=== PATIENT | female | born 1945 | race Caucasian/White ===

== ENCOUNTER 2018-03-06 17:44 | Inpatient (IN) | payer MEDICARE, OTHER ==
[2018-03-06] MEDS ORDERED: Sodium Chloride 0.9% 500 ML IV ONE (19:04)
[2018-03-06] MEDS ORDERED: Iohexol 240 (50 ml) PO STA (19:04)
[2018-03-06] MEDS ORDERED: Sodium Chloride 0.9% 1,000 ML ONE (19:34)
[2018-03-06] MEDS ORDERED: Iohexol 240 (50 ml) ONE (19:35)
[2018-03-06 19:41] LABS: BASO # 0.1 K/uL (0.0-0.2); BASO % 0.4 % (0.0-2.0); EOS # 0.2 K/uL (0.0-0.7); HEMOGLOBIN 12.6 g/dL (11.0-16.0); LYMPH # 3.1 K/uL (1.0-4.3); LYMPH % 25.5 % (20.0-40.0); MEAN CELL VOLUME 88.7 fL (81.0-99.0); MEAN CORPUSCULAR HEMOGLOBIN 29.9 pg (27.0-31.0); MEAN CORPUSCULAR HGB CONC 33.7 g/dL (33.0-37.0); MEAN PLATELET VOLUME 8.6 fL (7.2-11.7); MONO # 0.9 K/uL (0.0-0.8); MONO % 7.2 % (0.0-10.0); NEUT # 7.9 K/uL (1.8-7.0); NEUT % 64.9 % (50.0-75.0); NRBC % 0.1 % (0.0-2.0); RBC 4.22 Mil/uL (3.80-5.20); RED CELL DISTRIBUTION WIDTH 14.3 % (11.5-14.5); WHITE BLOOD COUNT 12.2 K/uL (4.8-10.8)
[2018-03-06 19:45] LABS: INR 1.1; PROTHROMBIN TIME 12.5 SECONDS (9.7-12.2)
[2018-03-06 19:48] LABS: ALBUMIN 4.2 g/dL (3.5-5.0); ALT/SGPT 31 U/L (9-52); AST/SGOT 35 U/L (14-36); BLOOD UREA NITROGEN 24 mg/dL (7-17); CALCIUM 9.4 mg/dl (8.6-10.4); GFR AFRICAN-AMERICAN > 60; GFR NON-AFRICAN AMERICAN > 60; LIPASE 178 U/L (23-300)
[2018-03-06 20:02] LABS: SQUAMOUS EPITHIAL 4 /hpf (0-5); URINE BILIRUBIN NEGATIVE (NEGATIVE); URINE BLOOD 1+ (NEGATIVE); URINE CLARITY Hazy (Clear); URINE COLOR Yellow (YELLOW); URINE GLUCOSE (UA) NORMAL (Normal); URINE HYALINE CAST 0-2 /lpf (0-2); URINE LEUKOCYTE ESTERASE NEG Leu/uL (Negative); URINE PROTEIN NEGATIVE (NEGATIVE); URINE UROBILINOGEN NORMAL mg/dL (0.2-1.0)
[2018-03-06] MEDS ORDERED: Iohexol 300 100 ML IJ ONE (20:27)
--- NOTE | 2018-03-06 21:44 | CT ---
EXAM: CT Abdomen and Pelvis With Intravenous Contrast EXAM DATE/TIME: Exam ordered 03/06/2018 7:53 PM CLINICAL HISTORY: 72 years old, female; Pain and signs and symptoms; Nausea and vomiting; Abdominal pain; Localized; Left; Additional info: Left abd pain. Constipation. N/v. TECHNIQUE: Axial computed tomography images of the abdomen and pelvis with intravenous contrast. All CT scans at this facility use one or more dose reduction techniques, viz.: automated exposure control; ma/kV adjustment per patient size (including targeted exams where dose is matched to indication; i.e. head); or iterative reconstruction technique. Coronal and sagittal reformatted images were created and reviewed. CONTRAST: 100 mL of omnipaque 300 administered intravenously. COMPARISON: No relevant prior studies available. FINDINGS: Lung bases: Discoid atelectasis or scar is seen at the left lung base. Mediastinum: There is a small to moderate size hiatal hernia. ABDOMEN: Liver: The is a rim-like calcification noted in the right upper quadrant inferior to the liver anteriorly. The appearance suggests a lymph node or a small area of chronic fat necrosis. Gallbladder and bile ducts: Surgical clips are noted in the gallbladder fossa. Common bile duct measures 8 mm. No calcified stones. Pancreas: Unremarkable. No mass. No ductal dilation. Spleen: Unremarkable. No splenomegaly. Adrenals: Unremarkable. No mass. Kidneys and ureters: Unremarkable. No solid mass. No hydronephrosis. Stomach and bowel: There is inflammatory change noted around a segment of the descending colon. There is generalized colonic diverticulosis. No obstruction. No mucosal thickening. Appendix: No findings to suggest acute appendicitis. PELVIS: Bladder: Unremarkable. No mass. Reproductive: Unremarkable as visualized. ABDOMEN and PELVIS: Intraperitoneal space: Unremarkable. No free air. No significant fluid collection. Bones/joints: No acute fracture. No dislocation. Soft tissues: There is diastases of the rectus abdominous muscles. There is a left para midline abdominal hernia medial to the left rectus muscle which contains fat. Vasculature: Unremarkable. No abdominal aortic aneurysm. Lymph nodes: Unremarkable. No enlarged lymph nodes. IMPRESSION: 1. Diverticulitis involving a segment of descending colon. No abscess. No perforation. 2. Generalized colonic diverticulosis. 3. Small to moderate size sliding hiatal hernia. 4. 2 hernias in the anterior abdomen. One is incisional and has a broad neck. A second occurs along the medial aspect of the left rectus muscle and contains fat. No findings to suggest strangulation.
[2018-03-06] MEDS ORDERED: metroNIDAZOLE IV 500 mg/100 ml 500 MG/100 ML BAG IVPB STA (21:56)
[2018-03-06] MEDS ORDERED: Ciprofloxacin 400mg/200ml D5W 400 MG/200 ML BAG IVPB STA (21:56)
[2018-03-06] MEDS ORDERED: Insulin Detemir 100 units/ml Vial (Levemir) SC SCH (22:00)
[2018-03-06] MEDS ORDERED: Sodium Chloride 0.9% 1,000 ML IV SCH (22:00)
--- NOTE | 2018-03-06 22:11 | C.PDOC ---
Time Seen by Provider: 03/06/18 18:46 Chief Complaint (Nursing): Abdominal Pain History Per: Patient Onset/Duration Of Symptoms: Days (5) Current Symptoms Are (Timing): Worse Severity: Moderate Location Of Pain/Discomfort: LUQ, LLQ Quality Of Discomfort: "Pain" Associated Symptoms: Nausea, Vomiting, Constipation Alleviating Factors: None Last Bowel Movement: Days Ago (3) Additional History Per: Prior Records Past Medical History Reviewed: Historical Data, Nursing Documentation, Vital Signs Vital Signs: Last Vital Signs Temp 98.4 F 03/06/18 21:13 Pulse 70 03/06/18 21:13 Resp 18 03/06/18 21:13 BP 133/56 L 03/06/18 21:13 Pulse Ox 97 03/06/18 21:13 - Medical History PMH: Diabetes, HTN Surgical History: Cholecystectomy, Hernia Repair Family History: States: Unknown Family Hx - Social History Hx Alcohol Use: No Hx Substance Use: No - Immunization History Hx Tetanus Toxoid Vaccination: No Hx Influenza Vaccination: Yes Hx Pneumococcal Vaccination: Yes Review Of Systems Except As Marked, All Systems Reviewed And Found Negative. Constitutional: Negative for: Weakness Cardiovascular: Negative for: Chest Pain Respiratory: Negative for: Shortness of Breath Gastrointestinal: Positive for: Nausea, Vomiting, Abdominal Pain, Constipation. Negative for: Diarrhea Genitourinary: Negative for: Dysuria Musculoskeletal: Positive for: Back Pain. Negative for: Neck Pain Skin: Negative for: Rash Neurological: Negative for: Weakness, Numbness Physical Exam - Physical Exam Appears: Non-toxic, No Acute Distress Skin: Normal Color, Warm, Dry, No Rash Head: Atraumatic, Normacephalic Eye(s): bilateral: PERRL, EOMI Neck: Normal ROM, Supple Cardiovascular: Rhythm Regular Respiratory: Normal Breath Sounds, No Accessory Muscle Use Gastrointestinal/Abdominal: Tenderness (left sided), Distention Extremity: Normal ROM Neurological/Psych: Oriented x3, Normal Motor, Normal Sensation ED Course And Treatment - Laboratory Results Result Diagrams: 03/06/18 19:29 03/06/18 19:29 Interpretation Of Abnormal: Mild leukocytosis O2 Sat by Pulse Oximetry: 97 Pulse Ox Interpretation: Normal - CT Scan/US CT abd/pelv Other Rad Studies (CT/US): Read By Radiologist, Radiology Report Reviewed CT/US Interpretation: IMPRESSION: 1. Diverticulitis involving a segment of descending colon. No abscess. No. perforation. . 2. Generalized colonic diverticulosis. . 3. Small to moderate size sliding hiatal hernia. . 4. 2 hernias in the anterior abdomen. One is incisional and has a broad neck. A. second occurs along the medial aspect of the left rectus muscle and contains. fat. No findings to suggest strangulation. Progress - Interventions Interventions:: Observation, Intravenous fluid - Medications Administered Intravenous: Antiemetic - Data Reviewed Data Reviewed: Lab, Diagnostic imaging, Old records - Patient Status Patient status: Unchanged - Continuity of Care Discussed patient case with:: Patient, Family-HIPPA compliant, ED Nurse, PMD - Patient Plan Patient Plan: Admission Disposition Discussed With Dr.: Samuel Lazo Jr. Comment: He wants pt to be admitted to the hospital on his service. Pt was also signed out to the [facility]. Counseled Patient/Family Regarding: Studies Performed, Diagnosis - Disposition Disposition: HOSPITALIZED Disposition Time: 22:12 Condition: FAIR - Clinical Impression Clinical Impression: Acute diverticulitis
--- NOTE | 2018-03-06 22:25 | CP.PCM.HP ---
History of Present Illness - History of Present Illness History of Present Illness: CC: abdominal pain and constipation PMD: Full Code This patient is a 72yo F w/ a PMhx of HTN, ID-DM, hypothyroidism, seasonal allergies, who is presenting to the ED after abdominal pain and distention for 4d; she states she has tactile fevers at home, had 3 episodes of vomiting 3 days ago. She also states the last time she had a full BM was 3 days ago and typically goes every day, but has since been able to keep all food down but is eating much less than normal. She denies any sick contacts, new foods, or recent travel. She states that the pain is in her LLQ, does not radiate anywhere , and is sharp 8/10. It is exacerbated by movement, and is alleviated by laying down. She currently denies any fevers/chills, NUNEZ, CP, SOB, N/V/D, dysuria/freq/ urg or lower extremity pain/swelling. PMHx: HTN, ID-DM, seasonal allergies, hypothyroidism Meds: Insulin Glargine 47 units BID, Insulin Aspart BID, Linagliptin 5mg, Levothyroxine 125mcg Allergies: seasonal Surgeries: two hernia repairs, gallbladder removal, no complications from anesthesia never had SBO in the past FamHx: DM, HTN, stroke on both sides in 70's Social: lives at home with , independent in IADL and ADL, can walk 5 blocks before gets short of breath, denies previous or current smoking/illicit drugs or EtOH Present on Admission - Present on Admission Any Indicators Present on Admission: Yes History of DVT/PE: No History of Uncontrolled Diabetes: Yes Urinary Catheter: No Decubitus Ulcer Present: No Past Patient History - Past Social History Smoking Status: Never Smoked - CARDIAC Hx Hypertension: Yes - ENDOCRINE/METABOLIC Hx Diabetes Mellitus Type 1: Yes - PSYCHIATRIC Hx Substance Use: No - SURGICAL HISTORY Hx Cholecystectomy: Yes - ANESTHESIA Hx Anesthesia: Yes Hx Anesthesia Reactions: No Hx Malignant Hyperthermia: No Meds Allergies/Adverse Reactions: Allergies Allergy/AdvReac Type Severity Reaction Status Date / Time No Known Allergies Allergy Verified 03/06/18 17:50 Physical Exam - Constitutional Appears: Non-toxic - Head Exam Head Exam: ATRAUMATIC - Eye Exam Eye Exam: EOMI, Normal appearance, PERRL Pupil Exam: PERRL - ENT Exam ENT Exam: Mucous Membranes Moist Additional comments: extremely large neck - Neck Exam Neck exam: Positive for: Full Rom. Negative for: Lymphadenopathy (JVD), Thyromegaly - Respiratory Exam Respiratory Exam: Clear to Auscultation Bilateral, NORMAL BREATHING PATTERN. absent: Rales, Rhonchi, Wheezes - Cardiovascular Exam Cardiovascular Exam: REGULAR RHYTHM, +S1, +S2 (muffled heart sound s2/2 to body habitus ) - GI/Abdominal Exam GI & Abdominal Exam: Hernia (umbilical ), Normal Bowel Sounds, Soft, Tenderness (in the LLQ). absent: Distended (extremely obese ), Organomegaly, Pulsatile Mass, Rebound, Rigid - Extremities Exam Extremities exam: Positive for: full ROM. Negative for: calf tenderness, pedal edema - Back Exam Back exam: NORMAL INSPECTION. absent: CVA tenderness (L), CVA tenderness (R) - Neurological Exam Neurological exam: Alert, CN II-XII Intact, Oriented x3 - Psychiatric Exam Psychiatric exam: Normal Affect - Skin Skin Exam: Warm Results - Vital Signs Recent Vital Signs: Last Vital Signs Temp 98.4 F 03/06/18 21:13 Pulse 70 03/06/18 21:13 Resp 18 03/06/18 21:13 BP 133/56 L 03/06/18 21:13 Pulse Ox 97 03/06/18 22:12 - Labs Result Diagrams: 03/06/18 19:29 03/06/18 19:29 Labs: Laboratory Results - last 24 hr 03/06/18 03/06/18 03/06/18 19:29 19:29 19:29 WBC 12.2 H RBC 4.22 Hgb 12.6 Hct 37.4 MCV 88.7 MCH 29.9 MCHC 33.7 RDW 14.3 Plt Count 324 MPV 8.6 Neut % (Auto) 64.9 Lymph % (Auto) 25.5 [place] % (Auto) 7.2 Eos % (Auto) 2.0 Baso % (Auto) 0.4 Neut # (Auto) 7.9 H Lymph # (Auto) 3.1 [place] # (Auto) 0.9 H Eos # (Auto) 0.2 Baso # (Auto) 0.1 PT 12.5 H INR 1.1 APTT 24 Sodium 142 Potassium 4.8 Chloride 101 Carbon Dioxide 25 Anion Gap 20 BUN 24 H Creatinine 0.9 Est GFR ( Amer) > 60 Est GFR (Non-Af Amer) > 60 Random Glucose 148 H Calcium 9.4 Total Bilirubin 0.5 AST 35 ALT 31 Alkaline Phosphatase 67 Total Protein 8.4 H Albumin 4.2 Globulin 4.2 H Albumin/Globulin Ratio 1.0 Lipase 178 Urine Color Urine Clarity Urine pH Ur Specific [place] Urine Protein Urine Glucose (UA) Urine Ketones Urine Blood Urine Nitrate Urine Bilirubin Urine Urobilinogen Ur Leukocyte Esterase Urine WBC (Auto) Urine RBC (Auto) Ur Squamous Epith Cells Hyaline Casts 03/06/18 19:43 WBC RBC Hgb Hct MCV MCH MCHC RDW Plt Count MPV Neut % (Auto) Lymph % (Auto) [place] % (Auto) Eos % (Auto) Baso % (Auto) Neut # (Auto) Lymph # (Auto) [place] # (Auto) Eos # (Auto) Baso # (Auto) PT INR APTT Sodium Potassium Chloride Carbon Dioxide Anion Gap BUN Creatinine Est GFR ( Amer) Est GFR (Non-Af Amer) Random Glucose Calcium Total Bilirubin AST ALT Alkaline Phosphatase Total Protein Albumin Globulin Albumin/Globulin Ratio Lipase Urine Color Yellow Urine Clarity Hazy Urine pH 5.0 Ur Specific [place] 1.011 Urine Protein Negative Urine Glucose (UA) Normal Urine Ketones Negative Urine Blood 1+ H Urine Nitrate Negative Urine Bilirubin Negative Urine Urobilinogen Normal Ur Leukocyte Esterase Neg Urine WBC (Auto) 1 Urine RBC (Auto) 4 H Ur Squamous Epith Cells 4 Hyaline Casts 0-2 Assessment & Plan - Assessment and Plan (Free Text) Assessment: 72yo F admitted for acute diverticulitis Acute Diverticulitis -f/u bcx and vbg lactate -WBC of 12.2 currently, LLQ pain, tacticle fevers, CT findings of diverticulitis ; will trend WBC for response -NPO -Metronidazole 500mg Q8H and Ciprofloxacin 400mg Q12H -100ml/hr NS for maintanence; will monitor BP -toradol for pain control Hx of HTN -c/w home meds Hx of morbid obesity -encourage diet and exercise on discharge Hx of DM -lower dose of insulin from home -RISS coverage low -accuchecks -hypoglycemia protocol -f/u HbA1C Hx of Hypothyroidism -f/u TSH; could be contributing to constipation if not controlled -c/w current levothyroxine Blood in Urine -patient does not admit to any blood from the vagina -will repeat UA; if still has blood would recommend US of cervix on d/c Prophylaxis -SCD -does not need GI prophylaxis at this time Case discussed with Dr. Clifton Alvarez PGY2 Decision To Admit - Pt Status Changed To: Hospital Disposition Of: Inpatient - Admit Certification Admit to Inpatient:: After my assessment, the patient will require hospitalization for at least two midnights. This is because of the severity of symptoms shown, intensity of services needed, and/or the medical risk in this patient being treated as an outpatient. - InPatient: Physician Admission Certification:: ACUTE DIVERTICULITIS NEEDS IV ABX - . Bed Request Type: Regular Admitting Physician: Samuel Lazo Jr.
[2018-03-06] MEDS ORDERED: Glucagon Recombinant 1 mg Inj IM PRN (22:32)
[2018-03-06] MEDS ORDERED: Dextrose 50% SYRINGE Inj (50 ml) IV PRN (22:32)
[2018-03-06 23:06] LABS: VENOUS BLOOD GAS BASE EXCESS 0.5 mmol/L (0.0-2.0); VENOUS BLOOD GAS PCO2 44 mmHg (40-60); VENOUS BLOOD GAS PO2 40 mm/Hg (30-55); VENOUS BLOOD PH 7.38 (7.32-7.43)
[2018-03-07 01:00] VITALS: RESP 20
[2018-03-07 06:34] LABS: BASO # 0.1 K/uL (0.0-0.2); BASO % 0.6 % (0.0-2.0); EOS # 0.2 K/uL (0.0-0.7); EOS % 2.2 % (0.0-4.0); HEMOGLOBIN 11.6 g/dL (11.0-16.0); LYMPH # 2.7 K/uL (1.0-4.3); LYMPH % 28.1 % (20.0-40.0); MEAN CELL VOLUME 88.9 fL (81.0-99.0); MEAN CORPUSCULAR HEMOGLOBIN 29.9 pg (27.0-31.0); MEAN CORPUSCULAR HGB CONC 33.7 g/dL (33.0-37.0); MEAN PLATELET VOLUME 8.3 fL (7.2-11.7); MONO # 0.7 K/uL (0.0-0.8); NEUT # 5.9 K/uL (1.8-7.0); NEUT % 62.1 % (50.0-75.0); NRBC % 0.1 % (0.0-2.0); RBC 3.89 Mil/uL (3.80-5.20); RED CELL DISTRIBUTION WIDTH 14.7 % (11.5-14.5); WHITE BLOOD COUNT 9.5 K/uL (4.8-10.8)
[2018-03-07 06:49] LABS: ALBUMIN 3.6 g/dL (3.5-5.0); ALT/SGPT 20 U/L (9-52); AST/SGOT 30 U/L (14-36); BLOOD UREA NITROGEN 15 mg/dL (7-17); CALCIUM 8.8 mg/dl (8.6-10.4); GFR AFRICAN-AMERICAN > 60; GFR NON-AFRICAN AMERICAN > 60; HDL CHOLESTEROL 35 mg/dL (30-70)
[2018-03-07] MEDS: Levothyroxine 125 MCG TAB PO SCH (06:50)
[2018-03-07 06:59] LABS: LDL CHOLESTEROL 93 mg/dL (0-129)
[2018-03-07 07:04] LABS: URINE BILIRUBIN NEGATIVE (NEGATIVE); URINE BLOOD NEGATIVE (NEGATIVE); URINE CLARITY Clear (Clear); URINE COLOR Straw (YELLOW); URINE GLUCOSE (UA) NORMAL (Normal); URINE LEUKOCYTE ESTERASE NEG Leu/uL (Negative); URINE PROTEIN NEGATIVE (NEGATIVE); URINE UROBILINOGEN NORMAL mg/dL (0.2-1.0)
[2018-03-07] MEDS: (Novolog) Insulin Aspart, Recombinant 100 u/ml 10 ml vial SC SCH ×4 (08:53→21:40)
[2018-03-07] MEDS: metroNIDAZOLE IV 500 mg/100 ml 500 MG/100 ML BAG IVPB SCH ×3 (08:53→21:42)
[2018-03-07] MEDS: Ciprofloxacin 400mg/200ml D5W 400 MG/200 ML BAG IVPB SCH ×2 (09:11→20:02)
[2018-03-07] MEDS ORDERED: (Novolog) Insulin Aspart, Recombinant 100 u/ml 10 ml vial SC SCH ×2 (10:00)
[2018-03-07] MEDS ORDERED: Insulin Detemir 100 units/ml Vial (Levemir) SC SCH (10:00)
--- NOTE | 2018-03-07 10:36 | CP.PCM.PN ---
<Mani Gaitan - Last Filed: 03/07/18 15:28> Subjective - Date & Time of Evaluation Date of Evaluation: 03/07/18 Time of Evaluation: 10:35 - Subjective Subjective: Patient seen and examined at bedside. Doing well. Still complaining of some belly pain in the LLQ. Better than yesterday. Wants to eat. This is her first episode of diverticulitis. No fevers or chills Objective - Vital Signs/Intake and Output Vital Signs (last 24 hours): Temp Pulse Resp BP Pulse Ox 97.7 F 62 20 131/71 96 03/07/18 08:00 03/07/18 08:00 03/07/18 08:00 03/07/18 08:00 03/07/18 08:00 Intake and Output: 03/07/18 03/07/18 06:59 18:59 Intake Total 700 Balance 700 - Medications Medications: Current Medications Amlodipine Besylate (Norvasc) 5 mg PO DAILY [facility] Enoxaparin Sodium (Lovenox) 40 mg SC DAILY [facility] Furosemide (Lasix) 40 mg PO DAILY [facility] Ciprofloxacin (Cipro 400mg/200ml Dsw) 400 mg in 200 mls @ 133 mls/hr IVPB Q12H [facility] PRN Reason: Protocol Last Admin: 03/07/18 09:11 Dose: 133 mls/hr Metronidazole (Flagyl) 500 mg in 100 mls @ 100 mls/hr IVPB Q8 [facility] PRN Reason: Protocol Last Admin: 03/07/18 08:53 Dose: 100 mls/hr Sodium Chloride (Sodium Chloride 0.9%) 1,000 mls @ 130 mls/hr IV .Q7H42M [facility] Insulin Aspart (Novolog) 0 unit SC ACHS [facility] PRN Reason: Protocol Last Admin: 03/07/18 08:53 Dose: 1 unit Levothyroxine Sodium (Synthroid) 125 mcg PO DAILY@0630 [facility] Last Admin: 03/07/18 06:50 Dose: 125 mcg Losartan Potassium (Cozaar) 100 mg PO DAILY [facility] Nebivolol (Bystolic) 10 mg PO DAILY [facility] - Labs Labs: 03/07/18 06:27 03/07/18 06:27 PT 12.5 SECONDS (9.7-12.2) H 03/06/18 19:29 INR 1.1 03/06/18 19:29 APTT 24 SECONDS (21-34) 03/06/18 19:29 - Constitutional Appears: Well - Head Exam Head Exam: ATRAUMATIC, NORMAL INSPECTION, NORMOCEPHALIC - Eye Exam Eye Exam: EOMI, Normal appearance, PERRL Pupil Exam: NORMAL ACCOMODATION, PERRL - ENT Exam ENT Exam: Mucous Membranes Moist, Normal Exam - Neck Exam Neck Exam: Full ROM, Normal Inspection. absent: Lymphadenopathy - Respiratory Exam Respiratory Exam: Clear to Ausculation Bilateral, NORMAL BREATHING PATTERN - Cardiovascular Exam Cardiovascular Exam: REGULAR RHYTHM, +S1, +S2. absent: Murmur - GI/Abdominal Exam GI & Abdominal Exam: Soft, Tenderness (tender to palpation in the LLQ), Normal Bowel Sounds. absent: Distended, Guarding - Extremities Exam Extremities Exam: Full ROM, Normal Capillary Refill, Normal Inspection. absent : Joint Swelling, Pedal Edema - Back Exam Back Exam: NORMAL INSPECTION - Neurological Exam Neurological Exam: Alert, Awake, CN II-XII Intact, Normal Gait, Oriented x3 - Psychiatric Exam Psychiatric exam: Normal Affect, Normal Mood - Skin Skin Exam: Dry, Intact, Normal Color, Warm Assessment and Plan (1) Acute diverticulitis Assessment & Plan: NPO cipro/flagyl NS @ 130 Status: Acute (2) Diabetes Assessment & Plan: ISS High Status: Acute (3) HTN (hypertension) Assessment & Plan: Norvasc 5 PO QD Cozaar 100 PO QD Bystolic 10 PO QD Status: Acute (4) Hypothyroid Assessment & Plan: synthroid 125 PO QD Status: Acute (5) Prophylactic measure Assessment & Plan: Lovenox 40 SC QD GI PPX not indicated Status: Acute <Samuel Lazo Jr. - Last Filed: 03/08/18 13:45> Objective - Vital Signs/Intake and Output Vital Signs (last 24 hours): Temp Pulse Resp BP Pulse Ox 98.2 F 62 20 137/63 96 03/08/18 07:57 03/08/18 07:57 03/08/18 07:57 03/08/18 11:01 03/08/18 07:57 Intake and Output: 03/08/18 03/08/18 06:59 18:59 Intake Total 2610 Balance 2610 - Medications Medications: Current Medications Amlodipine Besylate (Norvasc) 5 mg PO DAILY [facility] Last Admin: 03/08/18 11:00 Dose: 5 mg Enoxaparin Sodium (Lovenox) 40 mg SC DAILY [facility] Last Admin: 03/08/18 11:00 Dose: 40 mg Furosemide (Lasix) 40 mg PO DAILY [facility] Last Admin: 03/08/18 11:01 Dose: 40 mg Ciprofloxacin (Cipro 400mg/200ml Dsw) 400 mg in 200 mls @ 133 mls/hr IVPB Q12H [facility] PRN Reason: Protocol Last Admin: 03/08/18 08:46 Dose: 133 mls/hr Metronidazole (Flagyl) 500 mg in 100 mls @ 100 mls/hr IVPB Q8 [facility] PRN Reason: Protocol Last Admin: 03/08/18 05:18 Dose: 100 mls/hr Sodium Chloride (Sodium Chloride 0.9%) 1,000 mls @ 130 mls/hr IV .Q7H42M [facility] Last Admin: 03/08/18 02:44 Dose: 130 mls/hr Insulin Aspart (Novolog) 0 unit SC ACHS [facility] PRN Reason: Protocol Last Admin: 03/08/18 12:15 Dose: 1 unit Levothyroxine Sodium (Synthroid) 125 mcg PO DAILY@0630 [facility] Last Admin: 03/08/18 05:45 Dose: 125 mcg Losartan Potassium (Cozaar) 100 mg PO DAILY [facility] Last Admin: 03/08/18 11:00 Dose: 100 mg Nebivolol (Bystolic) 10 mg PO DAILY [facility] Last Admin: 03/08/18 11:01 Dose: 10 mg - Labs Labs: 03/08/18 07:09 03/08/18 07:09 PT 12.5 SECONDS (9.7-12.2) H 03/06/18 19:29 INR 1.1 03/06/18 19:29 APTT 24 SECONDS (21-34) 03/06/18 19:29 Attending/Attestation - Attestation I have personally seen and examined this patient.: Yes I have fully participated in the care of the patient.: Yes I have reviewed all pertinent clinical information, including history, physical exam and plan: Yes Notes (Text): 03/08/18 13:45 Agree with resident note findings and plan of care
[2018-03-07] MEDS: Enoxaparin 40 mg Syringe SC SCH (11:37)
[2018-03-07] MEDS: Sodium Chloride 0.9% 1,000 ML IV SCH ×2 (14:02→21:41)
[2018-03-08] MEDS: Sodium Chloride 0.9% 1,000 ML IV SCH ×2 (02:44→14:47)
[2018-03-08] MEDS: metroNIDAZOLE IV 500 mg/100 ml 500 MG/100 ML BAG IVPB SCH ×2 (05:18→14:46)
[2018-03-08] MEDS: Levothyroxine 125 MCG TAB PO SCH (05:45)
[2018-03-08 07:30] LABS: BASO % 0.5 % (0.0-2.0); EOS # 0.3 K/uL (0.0-0.7); EOS % 3.6 % (0.0-4.0); HEMOGLOBIN 11.7 g/dL (11.0-16.0); LYMPH % 27.1 % (20.0-40.0); MEAN CELL VOLUME 88.9 fL (81.0-99.0); MEAN CORPUSCULAR HEMOGLOBIN 29.6 pg (27.0-31.0); MEAN CORPUSCULAR HGB CONC 33.3 g/dL (33.0-37.0); MEAN PLATELET VOLUME 8.2 fL (7.2-11.7); MONO # 0.7 K/uL (0.0-0.8); MONO % 9.2 % (0.0-10.0); NEUT # 4.3 K/uL (1.8-7.0); NEUT % 59.6 % (50.0-75.0); NRBC % 0.1 % (0.0-2.0); RBC 3.95 Mil/uL (3.80-5.20); RED CELL DISTRIBUTION WIDTH 14.7 % (11.5-14.5); WHITE BLOOD COUNT 7.3 K/uL (4.8-10.8)
[2018-03-08 07:48] LABS: ALBUMIN 3.4 g/dL (3.5-5.0); ALT/SGPT 23 U/L (9-52); AST/SGOT 49 U/L (14-36); BLOOD UREA NITROGEN 14 mg/dL (7-17); CALCIUM 8.3 mg/dl (8.6-10.4); GFR AFRICAN-AMERICAN > 60; GFR NON-AFRICAN AMERICAN > 60
[2018-03-08] MEDS: Ciprofloxacin 400mg/200ml D5W 400 MG/200 ML BAG IVPB SCH (08:46)
[2018-03-08] MEDS: (Novolog) Insulin Aspart, Recombinant 100 u/ml 10 ml vial SC SCH ×3 (08:46→17:01)
[2018-03-08] MEDS: Enoxaparin 40 mg Syringe SC SCH (11:00)
--- NOTE | 2018-03-08 13:39 | CP.PCM.DIS ---
Provider - Provider Date of Admission: 03/06/18 21:59 Attending physician: Samuel Lazo Jr, MD Primary care physician: [place] Consults: none Time Spent in preparation of Discharge (in minutes): 45 Diagnosis - Discharge Diagnosis (1) Acute diverticulitis Status: Acute (2) Diabetes Status: Acute (3) HTN (hypertension) Status: Acute (4) Hypothyroid Status: Acute (5) Prophylactic measure Status: Acute Hospital Course - Lab Results Lab Results: Micro Results 03/06/18 23:04 Urine Urine Culture - Final No Growth (<1,000 CFU/ML) 03/06/18 20:45 Blood-Venous Blood Culture - Preliminary NO GROWTH AFTER 24 HOURS 03/06/18 20:45 Blood-Venous Blood Culture - Preliminary NO GROWTH AFTER 24 HOURS Most Recent Lab Values WBC 7.3 K/uL (4.8-10.8) 03/08/18 07:09 RBC 3.95 Mil/uL (3.80-5.20) 03/08/18 07:09 Hgb 11.7 g/dL (11.0-16.0) 03/08/18 07:09 Hct 35.1 % (34.0-47.0) 03/08/18 07:09 MCV 88.9 fL (81.0-99.0) 03/08/18 07:09 MCH 29.6 pg (27.0-31.0) 03/08/18 07:09 MCHC 33.3 g/dL (33.0-37.0) 03/08/18 07:09 RDW 14.7 % (11.5-14.5) H 03/08/18 07:09 Plt Count 307 K/uL (130-400) 03/08/18 07:09 MPV 8.2 fL (7.2-11.7) 03/08/18 07:09 Neut % (Auto) 59.6 % (50.0-75.0) 03/08/18 07:09 Lymph % (Auto) 27.1 % (20.0-40.0) 03/08/18 07:09 Simpson % (Auto) 9.2 % (0.0-10.0) 03/08/18 07:09 Eos % (Auto) 3.6 % (0.0-4.0) 03/08/18 07:09 Baso % (Auto) 0.5 % (0.0-2.0) 03/08/18 07:09 Neut # (Auto) 4.3 K/uL (1.8-7.0) 03/08/18 07:09 Lymph # (Auto) 2.0 K/uL (1.0-4.3) 03/08/18 07:09 Simpson # (Auto) 0.7 K/uL (0.0-0.8) 03/08/18 07:09 Eos # (Auto) 0.3 K/uL (0.0-0.7) 03/08/18 07:09 Baso # (Auto) 0.0 K/uL (0.0-0.2) 03/08/18 07:09 PT 12.5 SECONDS (9.7-12.2) H 03/06/18 19:29 INR 1.1 03/06/18 19:29 APTT 24 SECONDS (21-34) 03/06/18 19:29 pO2 40 mm/Hg (30-55) 03/06/18 22:50 VBG pH 7.38 (7.32-7.43) 03/06/18 22:50 VBG pCO2 44 mmHg (40-60) 03/06/18 22:50 VBG HCO3 24.7 mmol/L 03/06/18 22:50 VBG Total CO2 27.4 mmol/L (22-28) 03/06/18 22:50 VBG O2 Sat (Calc) 83.5 % (40-65) H 03/06/18 22:50 VBG Base Excess 0.5 mmol/L (0.0-2.0) 03/06/18 22:50 VBG Potassium 5.1 mmol/L (3.6-5.2) 03/06/18 22:50 Sodium 143.0 mmol/l (132-148) 03/06/18 22:50 Chloride 111.0 mmol/L (98-107) H 03/06/18 22:50 Glucose 148 mg/dl (65-105) H 03/06/18 22:50 Lactate 1.4 mmol/L (0.7-2.1) 03/06/18 22:50 FiO2 21.0 % 03/06/18 22:50 Sodium 145 mmol/L (132-148) 03/08/18 07:09 Potassium 4.4 mmol/L (3.6-5.2) 03/08/18 07:09 Chloride 109 mmol/L (98-107) H 03/08/18 07:09 Carbon Dioxide 24 mmol/L (22-30) 03/08/18 07:09 Anion Gap 17 (10-20) 03/08/18 07:09 BUN 14 mg/dL (7-17) 03/08/18 07:09 Creatinine 0.8 mg/dL (0.7-1.2) 03/08/18 07:09 Est GFR ( Amer) > 60 03/08/18 07:09 Est GFR (Non-Af Amer) > 60 03/08/18 07:09 POC Glucose (mg/dL) 161 mg/dL (65-110) H 03/08/18 07:10 Random Glucose 158 mg/dL (65-105) H 03/08/18 07:09 Hemoglobin A1c 8.1 % (4.2-6.5) H 03/07/18 06:27 Calcium 8.3 mg/dl (8.6-10.4) L 03/08/18 07:09 Total Bilirubin 0.4 mg/dL (0.2-1.3) 03/08/18 07:09 AST 49 U/L (14-36) H D 03/08/18 07:09 ALT 23 U/L (9-52) 03/08/18 07:09 Alkaline Phosphatase 52 U/L (38-126) 03/08/18 07:09 Total Protein 6.8 g/dL (6.3-8.3) 03/08/18 07:09 Albumin 3.4 g/dL (3.5-5.0) L 03/08/18 07:09 Globulin 3.3 gm/dL (2.2-3.9) 03/08/18 07:09 Albumin/Globulin Ratio 1.0 (1.0-2.1) 03/08/18 07:09 Triglycerides 94 mg/dL (0-149) 03/07/18 06:27 Cholesterol 147 mg/dL (0-199) 03/07/18 06:27 LDL Cholesterol Direct 93 mg/dL (0-129) 03/07/18 06:27 HDL Cholesterol 35 mg/dL (30-70) 03/07/18 06:27 Lipase 178 U/L (23-300) 03/06/18 19:29 TSH 3rd Generation 1.57 mIU/L (0.46-4.68) 03/07/18 06:27 Venous Blood Potassium 5.1 mmol/L (3.6-5.2) 03/06/18 22:50 Urine Color Straw (YELLOW) 03/07/18 06:58 Urine Clarity Clear (Clear) 03/07/18 06:58 Urine pH 5.0 (5.0-8.0) 03/07/18 06:58 Ur Specific Wren 1.015 (1.003-1.030) 03/07/18 06:58 Urine Protein Negative mg/dL (NEGATIVE) 03/07/18 06:58 Urine Glucose (UA) Normal mg/dL (Normal) 03/07/18 06:58 Urine Ketones Negative mg/dL (NEGATIVE) 03/07/18 06:58 Urine Blood Negative (NEGATIVE) 03/07/18 06:58 Urine Nitrate Negative (NEGATIVE) 03/07/18 06:58 Urine Bilirubin Negative (NEGATIVE) 03/07/18 06:58 Urine Urobilinogen Normal mg/dL (0.2-1.0) 03/07/18 06:58 Ur Leukocyte Esterase Neg Buzz/uL (Negative) 03/07/18 06:58 Urine WBC (Auto) 2 /hpf (0-5) 03/07/18 06:58 Urine RBC (Auto) < 1 /hpf (0-3) 03/07/18 06:58 Ur Squamous Epith Cells 4 /hpf (0-5) 03/06/18 19:43 Hyaline Casts 0-2 /lpf (0-2) 03/06/18 19:43 - Hospital Course Hospital Course: This patient is a 72yo F w/ a PMhx of HTN, ID-DM, hypothyroidism, seasonal allergies, who is presenting to the ED after abdominal pain and distention for 4d; she states she has tactile fevers at home, had 3 episodes of vomiting 3 days ago. She also states the last time she had a full BM was 3 days ago and typically goes every day, but has since been able to keep all food down but is eating much less than normal. She denies any sick contacts, new foods, or recent travel. She states that the pain is in her LLQ, does not radiate anywhere , and is sharp 8/10. It is exacerbated by movement, and is alleviated by laying down. She currently denies any fevers/chills, NUNEZ, CP, SOB, N/V/D, dysuria/freq/ urg or lower extremity pain/swelling. Hospital course: Patient was found to have acute diverticulitis on CT. Was started on cipro and flagyl and NPO for one day. Pain improved. Patient was able to tolerate regular diet on the following day. Discharge Exam - Head Exam Head Exam: ATRAUMATIC, NORMAL INSPECTION, NORMOCEPHALIC - Eye Exam Eye Exam: EOMI, Normal appearance, PERRL Pupil Exam: NORMAL ACCOMODATION, PERRL - Respiratory Exam Respiratory Exam: Clear to PA & Lateral, UNREMARKABLE - Cardiovascular Exam Cardiovascular Exam: REGULAR RHYTHM - GI/Abdominal Exam GI & Abdominal Exam: Normal Bowel Sounds - Neurological Exam Neurological exam: Alert, CN II-XII Intact, Normal Gait, Oriented x3, Reflexes Normal - Psychiatric Exam Psychiatric exam: Normal Affect, Normal Mood - Skin Skin Exam: Dry, Intact, Normal Color, Warm Discharge Plan - Discharge Medications Prescriptions: Ciprofloxacin [Cipro] 500 mg PO BID #20 tab Methylprednisolone [Medrol Dose Pack (21 tabs)] 4 mg PO DAILY #21 mg Metronidazole [Flagyl] 500 mg PO Q8 10 Days tablet - Follow Up Plan Condition: FAIR Disposition: HOME/ ROUTINE Instructions: Ciprofloxacin (Systemic), Diverticulitis (DC), Metronidazole ( Systemic), Methylprednisolone Referrals: Samuel Lazo Jr., MD [Medical Doctor] -
[2018-03-08 16:02] VITALS: BP 145/73; PULSE 63; TEMP 98; O2SAT 93
== END 2018-03-08 18:15 | disposition home or self-care (01) | DRG 392 ==
LOC: C.ER 17:44 → C.9E 21:59 → C.3T 22:47
PROVIDERS: ADMIT Internal Medicine; ATTEND Internal Medicine
DX: K57.92 Diverticulitis of intestine, part unspecified, without perforation or abscess without bleeding (principal); K59.00 Constipation, unspecified; I10 Essential (primary) hypertension; E03.9 Hypothyroidism, unspecified; E10.9 Type 1 diabetes mellitus without complications; Z79.4 Long term (current) use of insulin; Z90.49 Acquired absence of other specified parts of digestive tract

== ENCOUNTER 2018-11-21 08:47 | Outpatient (CLI) | payer MEDICARE, OTHER | END 2018-11-21 08:48 | disposition home or self-care (01) | LOC: C.SPRAD 08:47 | DX: N62 Hypertrophy of breast (principal); N63.10 Unspecified lump in the right breast, unspecified quadrant; Z98.890 Other specified postprocedural states ==

== ENCOUNTER 2018-12-08 12:33 | Emergency (ER) | payer MEDICARE, OTHER ==
[2018-12-08 12:34] VITALS: BMI 37.8
--- NOTE | 2018-12-08 14:29 | C.PDOC ---
History Of Present Illness 73 y/o female with PMHx of HTN, DM, presents to the ED s/p fall just prior to arrival. Patient was walking in to the hospital when her foot got stuck to the floor causing her to trip and fall. She is now complaining of pain to the left rib/costal margin, right wrist, and bilateral knees. She also sustained small abrasions to her chin. There was no LOC. She denies any SOB, nausea, vomiting, visual changes, slurred speech, or memory loss. - HPI Time Seen by Provider: 12/08/18 13:01 Chief Complaint (Nursing): Trauma History Per: Patient History/Exam Limitations: no limitations Onset/Duration Of Symptoms: Mins Injury Occurred (Timing): Just Before Arrival Past Medical History Reviewed: Historical Data, Nursing Documentation, Vital Signs Vital Signs: Last Vital Signs Temp 98 F 12/08/18 12:37 Pulse 81 12/08/18 12:37 Resp 18 12/08/18 12:37 BP 160/62 H 12/08/18 12:37 Pulse Ox 100 12/08/18 12:37 - Medical History PMH: Diabetes, HTN, Hypothyroidism, Sleep Apnea Denies: Chronic Kidney Disease Surgical History: Cholecystectomy, Hernia Repair - [facility] Procedures EXCISION OF LIVER, OPEN APPROACH, DIAGNOSTIC (04/27/18) INTRODUCE LOCAL ANESTH IN PERIPH NRV, PLEXI, PERC (04/27/18) RELEASE SMALL INTESTINE, OPEN APPROACH (04/27/18) REMOVAL OF SYNTHETIC SUBSTITUTE FROM ABD WALL, OPEN APPROACH (04/27/18) REPAIR SMALL INTESTINE, OPEN APPROACH (04/27/18) SUPPLEMENT ABDOMINAL WALL WITH SYNTH SUB, OPEN APPROACH (04/27/18) Family History: States: Unknown Family Hx - Social History Hx Alcohol Use: No Hx Substance Use: No - Immunization History Hx Tetanus Toxoid Vaccination: No Hx Influenza Vaccination: Yes Hx Pneumococcal Vaccination: Yes Review Of Systems Constitutional: Negative for: Fever, Chills Eyes: Negative for: Vision Change Cardiovascular: Positive for: Other (Left rib pain). Negative for: Chest Pain Respiratory: Negative for: Shortness of Breath Gastrointestinal: Negative for: Nausea, Vomiting Musculoskeletal: Positive for: Hand Pain (Right wrist), Leg Pain (B/L knee pain). Negative for: Neck Pain, Back Pain Skin: Positive for: Lesions (abrasion to chin). Negative for: Rash Neurological: Negative for: Weakness, Numbness, Incoordination, Change in Speech, Confusion, Dizziness Physical Exam - Physical Exam Appears: Non-toxic, No Acute Distress Skin: Warm, Dry Head: Normacephalic, Abrasion (small abrasions to chin) Eye(s): bilateral: Normal Inspection, PERRL, EOMI Oral Mucosa: Moist Teeth: No Tender To Palpation, No Loose Neck: Normal ROM, No Midline Cervical Tenderness, Supple Chest: No Deformity, Tenderness (to the left costal margin) Cardiovascular: Rhythm Regular, No Murmur Respiratory: Normal Breath Sounds, No Rales, No Rhonchi, No Wheezing Gastrointestinal/Abdominal: Soft, No Tenderness, No Distention Extremity: Normal ROM, Tenderness (with mild swelling to the right wrist and bilateral knees), Capillary Refill (< 2 sec), No Deformity Pulses: Left Radial: Normal, Right Radial: Normal, Left Dorsalis Pedis: Normal, Right Dorsalis Pedis: Normal Neurological/Psych: Oriented x3, Normal Cranial Nerves, Normal Motor, Normal Sensation, Other (No focal deficits) ED Course And Treatment O2 Sat by Pulse Oximetry: 100 (RA) Pulse Ox Interpretation: Normal - CT Scan/US CT C-spine Other Rad Studies (CT/US): Read By Radiologist, Radiology Report Reviewed CT/US Interpretation: Accession No. : [id number]. Patient Name / ID : KATHIA HERNANDEZ / [id number]. Exam Date : 12/08/2018 14:19:01 ( Approved ). Study Comment : Sex / Age : F / 73Y. Creator : Nimo Martell. Dictator : Mani Riley MD. Child Daycare Worker : Biochemical Development Engineer : Mani Riley MD. Approver2 : Report Date : 12/08/2018 14:32:23. My Comment : . Date of service: 12/08/2018. PROCEDURE: CT Cervical Spine without contrast. HISTORY: trauma. COMPARISON: None available. TECHNIQUE: Axial computed tomography images were obtained of the cervical spine without the use of intravenous contrast. Coronal and sagittal reformatted images were created and reviewed. Radiation dose: Total exam DLP = 700.14 mGy-cm. This CT exam was performed using one or more of the following dose reduction techniques: Automated exposure control, adjustment of the mA and/or kV according to patient size, and/or use of iterative reconstruction technique. FINDINGS: VERTEBRAE: No fracture. Normal alignment. No destructive bony lesion. DISCS/SPINAL CANAL/NEURAL FORAMINA: No significant central canal or neural foraminal stenosis. Discs heights are grossly preserved. Limited anterior spondylosis appreciated C5-6 and C6-7. PARASPINAL SOFT TISSUES: Unremarkable. OTHER FINDINGS: None. IMPRESSION: No fracture or spondylolisthesis identified. No spinal stenosis identified. Limited spondylosis inferior cervical spine predominantly anterior in location. CT Head Other Rad Studies (CT/US): Read By Radiologist, Radiology Report Reviewed CT/US Interpretation: Accession No. : [id number]. Patient Name / ID : KATHIA HERNANDEZ / [id number]. Exam Date : 12/08/2018 14:15:38 ( Approved ). Study Comment : Sex / Age : F / 73Y. Creator : Nimo Martell. Dictator : Mani Riley MD. Child Daycare Worker : Biochemical Development Engineer : Mani Riley MD. Approver2 : Report Date : 12/08/2018 14:32:17. My Comment : . Date of service: 12/08/2018. PROCEDURE: CT HEAD WITHOUT CONTRAST. HISTORY: trauma. COMPARISON: None available. TECHNIQUE: Axial computed tomography images were obtained through the head/brain without intravenous contrast. Radiation dose: Total exam DLP = 1129.78 mGy-cm. This CT exam was performed using one or more of the following dose reduction techniques: Automated exposure control, adjustment of the mA and/or kV according to patient size, and/or use of iterative reconstruction technique. FINDINGS: HEMORRHAGE: No intracranial hemorrhage. BRAIN: The glasgow-white matter differentiation is well preserved. There is no mass effect or definitive edema pattern appreciated including the cortex. There is proportional expansion of the ventriculosulcal and cisternal spaces however in a pattern most compatible with diffuse cerebral atrophy. No suspicious extra-axial fluid collection is identified in the midline brain anatomy appears grossly nonfocal as imaged. VENTRICLES: Unremarkable. No hydrocephalus. CALVARIUM: No destructive bony lesion or displaced fracture identified including through the skullbase. PARANASAL SINUSES: Unremarkable as visualized. No significant inflammatory changes. MASTOID AIR CELLS: Unremarkable as visualized. No inflammatory changes. OTHER FINDINGS: None. IMPRESSION: Minimal diffuse cerebral atrophy definite acute intracranial findings by standard CT criteria. Follow-up CT or MRI are available if clinically warranted. Medical Decision Making Medical Decision Making: Impression: s/p fall Plan: --Right wrist x-ray --Left ribs/chest x-ray --Bilateral knee x-ray --975 mg PO Tylenol --EKG --CT Head --CT C-spine All imaging reviewed with patient. Patient remains AAOx3, resting comfortably, in no acute distress. Plan is to d/c patient home, advised to take nsaids for pain as needed. Patient instructed to follow up with PMD or the clinic. xr neg as read by me. pt observe d in nad taking po. ambulatory steady giat. abd soft no ttp. no luq ttp. vitals stable not tachcyardic, fall from standing not on blood thinners, low clinical suspcion for intraabdomianl bleeding. advise outpt fu and strict return precautions Disposition Counseled Patient/Family Regarding: Studies Performed, Diagnosis, Need For F ollowup - Disposition Referrals: [facility] [Outside] [facility] [Outside] Disposition: HOME/ ROUTINE Disposition Time: 14:53 Condition: STABLE Additional Instructions: return to er with any worsening symptoms or concerns. Instructions: Wrist Sprain (DC), Knee Sprain (DC), Preventing Falls, Bruised Rib (DC) Forms: [employer] ([place]) - Clinical Impression Clinical Impression: Fall, Rib contusion, Wrist sprain, Knee sprain - Scribe Statement The provider has reviewed the documentation as recorded by the Maria Guadalupe Berg Provider Attestation: All medical record entries made by the Maria Guadalupe were at my direction and personally dictated by me. I have reviewed the chart and agree that the record accurately reflects my personal performance of the history, physical exam, medical decision making, and the department course for this patient. I have also personally directed, reviewed, and agree with the discharge instructions and disposition.
--- NOTE | 2018-12-08 14:39 | CT ---
Date of service: 12/08/2018 PROCEDURE: CT HEAD WITHOUT CONTRAST. HISTORY: trauma COMPARISON: None available. TECHNIQUE: Axial computed tomography images were obtained through the head/brain without intravenous contrast. Radiation dose: Total exam DLP = 1129.78 mGy-cm. This CT exam was performed using one or more of the following dose reduction techniques: Automated exposure control, adjustment of the mA and/or kV according to patient size, and/or use of iterative reconstruction technique. FINDINGS: HEMORRHAGE: No intracranial hemorrhage. BRAIN: The glasgow-white matter differentiation is well preserved. There is no mass effect or definitive edema pattern appreciated including the cortex. There is proportional expansion of the ventriculosulcal and cisternal spaces however in a pattern most compatible with diffuse cerebral atrophy. No suspicious extra-axial fluid collection is identified in the midline brain anatomy appears grossly nonfocal as imaged. VENTRICLES: Unremarkable. No hydrocephalus. CALVARIUM: No destructive bony lesion or displaced fracture identified including through the skullbase. PARANASAL SINUSES: Unremarkable as visualized. No significant inflammatory changes. MASTOID AIR CELLS: Unremarkable as visualized. No inflammatory changes. OTHER FINDINGS: None. IMPRESSION: Minimal diffuse cerebral atrophy definite acute intracranial findings by standard CT criteria. Follow-up CT or MRI are available if clinically warranted.
--- NOTE | 2018-12-08 14:42 | CT ---
Date of service: 12/08/2018 PROCEDURE: CT Cervical Spine without contrast HISTORY: trauma COMPARISON: None available. TECHNIQUE: Axial computed tomography images were obtained of the cervical spine without the use of intravenous contrast. Coronal and sagittal reformatted images were created and reviewed. Radiation dose: Total exam DLP = 700.14 mGy-cm. This CT exam was performed using one or more of the following dose reduction techniques: Automated exposure control, adjustment of the mA and/or kV according to patient size, and/or use of iterative reconstruction technique. FINDINGS: VERTEBRAE: No fracture. Normal alignment. No destructive bony lesion. DISCS/SPINAL CANAL/NEURAL FORAMINA: No significant central canal or neural foraminal stenosis. Discs heights are grossly preserved. Limited anterior spondylosis appreciated C5-6 and C6-7. PARASPINAL SOFT TISSUES: Unremarkable. OTHER FINDINGS: None. IMPRESSION: No fracture or spondylolisthesis identified. No spinal stenosis identified. Limited spondylosis inferior cervical spine predominantly anterior in location.
[2018-12-08] MEDS ORDERED: Tdap Vaccine 0.5 ml Vial (10-64 yrs) IM ONE ×2 (14:54→15:04)
[2018-12-08 15:09] VITALS: BP 153/71; PULSE 67; RESP 20; TEMP 98.2
--- NOTE | 2018-12-08 16:21 | RAD ---
Date of service: 12/08/2018 PROCEDURE: Bilateral Knee Radiographs. HISTORY: trauma COMPARISON: None available. FINDINGS: Examination limited by habitus. BONES: Right Knee: No acute displaced fracture identified. Left Knee: No acute displaced fracture identified. JOINTS: Right Knee: Joint space narrowing most prominent at the medial patellofemoral compartments. No dislocation. Left knee: Joint space narrowing most prominent at the lateral and patellofemoral compartments. No dislocation. SOFT TISSUES: Right Knee: No evidence of radiopaque foreign body. Left Knee: No evidence of radiopaque foreign body. JOINT EFFUSION: Right Knee: No significant joint effusion identified. Left Knee: No significant joint effusion identified. OTHER FINDINGS: None. IMPRESSION: Small left suprapatellar joint effusion. No acute displaced fracture identified. Degenerative changes. If high clinical index of suspicion for occult fractures suggest cross-sectional imaging. Otherwise if symptoms persist or if there is continued clinical concern, x-ray follow-up in 7-10 days should be considered. Study marked for PA review.
--- NOTE | 2018-12-08 16:27 | RAD ---
Date of service: 12/08/2018 PROCEDURE: Right Wrist Radiographs. HISTORY: trauma COMPARISON: None. FINDINGS: BONES: No acute fracture or destructive bony lesion identified. The navicular bone appears intact. JOINTS: No subluxation. No dislocation. Joint space narrowing and articular cortical sclerosis appreciated throughout the carpal carpal and carpometacarpal articulations, seen worst at the basal joint compatible with degenerative joint disease. Radiocarpal joints are also degenerated. SOFT TISSUES: Normal. OTHER FINDINGS: None. 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 No acute fracture or dislocation identified.
--- NOTE | 2018-12-08 16:28 | RAD ---
Date of service: 12/08/2018 PROCEDURE: Radiographs of the Chest and Left Ribs. HISTORY: trauma COMPARISON: None available. TECHNIQUE: Frontal radiograph of the chest and multiple oblique radiographs of the left ribs were obtained. FINDINGS: LEFT RIBS: No fracture or focal lesion visualized. LUNGS: Clear. PLEURA: No pneumothorax or pleural fluid. CARDIOVASCULAR: Normal cardiac size. No pulmonary vascular congestion. No aortic atherosclerotic calcification present OTHER FINDINGS: None. IMPRESSION: Unremarkable radiographs of the chest and left ribs. No left rib fracture.
[2018-12-08 19:52] VITALS: O2SAT 100
--- NOTE | 2018-12-11 12:13 | CARD ---
APPROVED REPORT Date of service: 12/08/2018 EKG Measurement Heart [id number] <Conclusion> Normal sinus rhythm Nonspecific T wave abnormality, consider anterior ischemia Abnormal ECG
== END 2018-12-08 15:08 | disposition home or self-care (01) ==
LOC: C.ER 12:33
DX: S20.219A Contusion of unspecified front wall of thorax, initial encounter (principal); S63.501A Unspecified sprain of right wrist, initial encounter; S83.91XA Sprain of unspecified site of right knee, initial encounter; S83.92XA Sprain of unspecified site of left knee, initial encounter; W01.0XXA Fall on same level from slipping, tripping and stumbling without subsequent striking against object, initial encounter; Y92.238 Other place in hospital as the place of occurrence of the external cause; I10 Essential (primary) hypertension; E11.9 Type 2 diabetes mellitus without complications; Z23 Encounter for immunization